=== PATIENT | female | born 1960 | race Hispanic/Latino ===

== ENCOUNTER → 2017-05-04 | Day surgery (SDC) | payer OTHER, MEDICARE ==
[~2017-05-04] VITALS: Ht 165.1 cm; Wt 68.0 kg
[~2017-05-04] MED LIST: ACTIVELLA PO; ALENDRONATE SOD70 M1 PO; BUPROPION HCL300 MG PO; CEFUROXIME AXE500 MG PO; CLONAZEPAM0.5 MG PO; DULOXETINE HYDR30 MG PO; GABAPENTIN400 MG PO; JENTADUETO PO; LINZESS145 MCG PO; MECLIZINE HCL25 M1 PO; MELOXICAM15 MG PO; METHYLPREDNISOLO4 MG PO; MIRTAZAPINE15 MG PO; NORVASC 5MG TAB5 MG PO; OMEPRAZOLE20 MG PO; PENTOXIFYLLINE400 MG PO; PRAVASTATIN SOD40 MG PO; PROMETHAZINE W118 ML PO; RISPERIDONE3 MG PO; TIZANIDINE HCL2 MG PO; TRAZODONE150 MG PO; ZOLPIDEM TARTRA10 MG PO
--- NOTE | 2017-05-04 10:37 | Operative Report ---
Operative/Inv Procedure Report Surgery Date: 05/04/17 Name of Procedure: Cataract extraction with intraocular lens implantation right eye Pre-Operative Diagnosis: Age-related cataract right eye Post-Operative Diagnosis: Same Estimated Blood Loss: none Surgeon/Manager [employer]: Mynor Boo MD Anesthesia: local monitored anesthesi Complications: None Operative/Procedure Note Note: Preoperatively the patient was noted to have 20/40 vision in the right eye with a decrease with glare testing down to 20/60. The risks, benefits, and alternatives to surgery were discussed at length with the patient. Informed consent was obtained. The patient was brought to the operating room where the right eye was prepped and draped in the normal sterile fashion. A speculum was placed on the right eye with good exposure. A stab incision was made using a paracentesis blade. Intracameral lidocaine was placed. Viscoelastic was used to form the anterior chamber. A clear corneal incision was made using keratome blade. A continuous curvilinear capsulorrhexis was made using a cystotome needle followed by Utrata forceps. There was no extension of the rhexis. Hydrodissection was performed using balanced salt solution. The cataract was removed using a stop and chop technique. Residual cortex was removed using coaxial irrigation and aspiration. The capsule was polished using irrigation and aspiration and the posterior capsule was cleaned using a balanced salt solution jet. There was no residual lens material inside the eye. The capsular bag was reformed using viscoelastic. An intraocular lens ZCBOO of power 19.5 was verified and confirmed. It was loaded into an injector and injected into the eye. The lens was placed entirely within the capsular bag. Viscoelastic was evacuated using irrigation and aspiration. The wounds were stromally hydrated and the eye filled to physiologic pressure using balanced salt solution. Intracameral cefuroxime was placed. Speculum was removed and a shield was placed on the eye. The patient was brought to the recovery area without incident. Instructions were given to follow-up the next day for routine postoperative care.
== END ==
LOC: STS 03:34
DX: H25.9 Unspecified age-related cataract (principal); E11.9 Type 2 diabetes mellitus without complications; Z79.84 Long term (current) use of oral hypoglycemic drugs; K21.9 Gastro-esophageal reflux disease without esophagitis
CPT/HCPCS: J2250; V2632